=== PATIENT | female | born 1995 | race Caucasian/White ===

== ENCOUNTER 2019-11-21 03:37 | Emergency (ER) | payer SELFPAY ==
[~2019-11-21] VITALS: Ht 167.6 cm; Wt 63.5 kg
[2019-11-21 03:37] VITALS: BP 142/88
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
[2019-11-21 05:13] VITALS: BP 142/88
--- NOTE | 2019-11-21 05:14 | NUR ---
PATIENT SEEN AND CLEARED BY DR. PIMENTEL. NO NURSING CARE RENDERED. DISCHARGED BY DR. PIMENTEL. AMB IN CUSTODY, ESCORTED BY [facility].
== END 2019-11-21 05:14 ==
LOC: MED 03:37
DX: Z02.89 Encounter for other administrative examinations (principal)
CPT/HCPCS: 99283